=== PATIENT | male | born 1995 | race Caucasian/White ===

== ENCOUNTER 2017-01-12 | Emergency (ER) | payer MEDICAID, OTHER ==
[~2017-01-12] VITALS: Wt 64.2 kg
[~2017-01-12] MED LIST: IBUP800T25 PO
[2017-01-12] MEDS ORDERED: FAMOTIDINE 20 MG INJ IV STA (00:21)
[2017-01-12] MEDS ORDERED: LIDOCAINE/MYLANTA 40 ML BTL PO STA (00:21)
[2017-01-12] MEDS ORDERED: SOD CHLORIDE 0.9% 1,000 ML IV STA (00:21)
[2017-01-12 00:50] LABS: BASOPHILS % 0.3 % (0.0-2.0); EOSINOPHILS # 0.3 10^3/ul (0.0-0.5); EOSINOPHILS % 3.5 % (0.0-7.0); HEMATOCRIT 44.3 % (42.0-52.0); HEMOGLOBIN 15.7 g/dl (14.0-18.0); LYMPHOCYTES # 3.1 10^3/ul (0.8-2.9); LYMPHOCYTES % 32.9 % (15.0-51.0); MEAN CORPUSCULAR HEMOGLOBIN 32.9 pg (29.0-33.0); MEAN CORPUSCULAR HGB CONC 35.4 g/dl (32.0-37.0); MEAN CORPUSCULAR VOLUME 92.9 fl (82.0-101.0); MEAN PLATELET VOLUME 8.8 fl (7.4-10.4); MONOCYTE # 0.6 10^3/ul (0.3-0.9); MONOCYTES % 6.5 % (0.0-11.0); NEUTROPHIL # 5.2 10^3/ul (1.6-7.5); NEUTROPHILS % 56.5 % (39.0-77.0); PLATELET COUNT 288 10^3/UL (140-415); RED BLOOD COUNT 4.77 10^6/ul (4.70-6.10); WHITE BLOOD COUNT 9.3 10^3/ul (4.8-10.8)
[2017-01-12 00:59] LABS: ADD UMIC NO; UR ASCORBIC ACID 20 mg/dL (NEGATIVE); UR BILIRUBIN (Dip) NEGATIVE (NEGATIVE); UR BLOOD (Dip) NEGATIVE (NEGATIVE); UR CLARITY CLEAR (CLEAR); UR COLOR YELLOW (YELLOW); UR GLUCOSE (Dip) NEGATIVE (NEGATIVE); UR KETONES (Dip) NEGATIVE (NEGATIVE); UR LEUKOCYTE ESTERASE (Dip) NEGATIVE Leu/ul (NEGATIVE); UR NITRITE (Dip) NEGATIVE (NEGATIVE); UR SPECIFIC GRAVITY (Dip) 1.021 (1.003-1.030); UR TOTAL PROTEIN (Dip) NEGATIVE (NEGATIVE); UR UROBILINOGEN (Dip) 2+ mg/dL (NEGATIVE)
[2017-01-12 01:09] LABS: ALBUMIN 4.9 g/dl (3.3-4.9); ALBUMIN/GLOBULIN RATIO 1.48; BILIRUBIN,INDIRECT 1.2 mg/dl (0-1.1); BILIRUBIN,TOTAL 1.2 mg/dl (0.2-1.3); CALCIUM 10.1 mg/dl (8.4-10.2); CREATININE 0.9 mg/dl (0.61-1.24); POTASSIUM 3.7 mmol/L (3.5-5.1); TOTAL PROTEIN 8.2 g/dl (6.1-8.1)
--- NOTE | 2017-01-12 01:20 | RADRPT ---
PROCEDURE: US Abdomen (right upper quadrant). CLINICAL INDICATION: Pain. TECHNIQUE: Multiple real-time longitudinal and transverse images of the right upper quadrant of th e abdomen were acquired utilizing a curved array transducer. Images were reviewed on a high-resoluti on PACS workstation. COMPARISON: None FINDINGS: The liver is normal in size and echogencity. There is no focal intrahepatic mass.. The gallbladder is normal. There is no pericholecystic fluid or gallbladder wall thickening or gallstones. No intr a or extrahepatic biliary dilatation is seen. The common bile duct measures 3.6 mm in maximal dimen raad. The visualized portions of the pancreas are unremarkable with obscuration of the tail of the pancreas. No free fluid is identified. Visualized abdominal aorta and IVC are unremarkable. The right kidney measures 10.4 cm in length. Renal cortical echogenicity is within normal limits.. There is no perinephric fluid collection. No hydronephrosis, mass, or calculus is seen. IMPRESSION: 1. Negative examination. RPTAT: HMVK .Bret Duval MD, MD Date Time Electronically viewed and signed by .Bret Duval MD, MD on 01/12/2017 01:20 .K/
--- NOTE | 2017-01-12 01:28 | ERD ---
ER Documentation Chief Complaint Chief Complaint Abdominal pain HPI The patient is a 21-year-old male who presents to the Emergency Department with complaint of abdominal pain for the past 2 days. The patient reports that his pain is localized to the epigastric region of the abdomen, with no radiation. The pain is described as burning in nature (while he eats) and is particularly exacerbated after eating fried, fatty, greasy or spicy foods "with chili." He rates his current pain as 5/10, but notes that he has not yet taken any medication for pain relief. Otherwise, denies any fevers, sweats, chills, nausea , vomiting, diarrhea, dysuria, hematuria, flank pain. Denies black or bloody stools. Denies cough or recent URI symptoms. Denies any other complaints at this time. ROS All systems reviewed and are negative except as per history of present illness. Medications Home Meds Active Scripts Magaldrate/Simethicone* (Mylanta*) 355 Ml Susp, 10 ML PO QID Y for GASTROINTESTINAL UPSET, #1 BOTTLE Prov:KAYLAN CARSON PA-C 01/12/17 Famotidine* (Famotidine*) 20 Mg Tablet, 20 MG PO BID, #30 TAB Prov:KAYLAN CARSON PA-C 01/12/17 Ibuprofen* (Motrin*) 800 Mg Tab, 800 MG PO Q6H Y for PAIN AND OR ELEVATED TEMP, #30 TAB Prov:AUDI AZEVEDO MD 10/01/15 Allergies Allergies: Coded Allergies: No Known Allergy (Unverified , 10/01/15) PMhx/Soc Medical and Surgical Hx: pt denies Medical Hx History of Surgery: Yes (appy) Anesthesia Reaction: No Hx Alcohol Use: No Hx Substance Use: Yes (THC) Hx Tobacco Use: No Smoking Status: Never smoker Physical Exam Vitals Vital Signs Date Time Temp Pulse Resp B/P Pulse Ox O2 Delivery O2 Flow Rate FiO2 01/12/17 01:55 98.8 78 18 137/67 100 Room Air 01/12/17 00:01 99.8 92 20 145/70 100 Physical Exam GENERAL: Well-developed, well-nourished, in no acute distress HEENT: Head is normocephalic, atraumatic. No scleral pallor or icterus. Pupils equal, round and reactive to light. Extraocular movements intact. Conjunctiva pink. Moist mucous membranes. NECK: Supple. RESPIRATORY: Lungs are clear to auscultation bilaterally. Equal breath sounds. Normal expiratory effort. CARDIOVASCULAR: Regular rate and rhythm. S1 and S2 normal. GASTROINTESTINAL: Abdomen is soft and nondistended. Mild tenderness to palpation over the epigastric region of the abdomen. No guarding, no rebound tenderness. Normal bowel sounds. Negative Guzman's sign. No tenderness at McBurney's point. FLANK: No CVA tenderness, no mass or swelling. EXTREMITIES: No clubbing, cyanosis, or edema. Normal skin perfusion. Full range of motion of both the upper and lower extremities bilaterally. Muscle tone is normal. No focal swelling or erythema. NEUROLOGIC: The patient is alert, awake, and oriented x 3. No focal neurologic deficits. INTEGUMENT: Skin is clean, dry and intact. No rashes, lesions or petechiae present. PSYCHIATRIC: Appropriate; Cooperative. Result Diagram: 01/12/172901/12/1729 Results 24 hrs Laboratory Tests Test 01/12/17 00:20 01/12/17 00:30 Urine Color YELLOW Urine Clarity CLEAR Urine pH 6.0 Urine Specific [place] 1.021 Urine Ketones NEGATIVEmg/dL Urine Nitrite NEGATIVEmg/dL Urine Bilirubin NEGATIVEmg/dL Urine Urobilinogen 2+mg/dL Urine Leukocyte Esterase NEGATIVELeu/ul Urine Hemoglobin NEGATIVEmg/dL Urine Glucose NEGATIVEmg/dL Urine Total Protein NEGATIVEmg/dl White Blood Count 9.310^3/ul Red Blood Count 4.7710^6/ul Hemoglobin 15.7g/dl Hematocrit 44.3% Mean Corpuscular Volume 92.9fl Mean Corpuscular Hemoglobin 32.9pg Mean Corpuscular Hemoglobin Concent 35.4g/dl Red Cell Distribution Width 11.0% Platelet Count 54820^3/UL Mean Platelet Volume 8.8fl Neutrophils % 56.5% Lymphocytes % 32.9% Monocytes % 6.5% Eosinophils % 3.5% Basophils % 0.3% Nucleated Red Blood Cells % 0.0/100WBC Neutrophils # 5.210^3/ul Lymphocytes # 3.110^3/ul Monocytes # 0.610^3/ul Eosinophils # 0.310^3/ul Basophils # 0.010^3/ul Nucleated Red Blood Cells # 0.010^3/ul Sodium Level 143mmol/L Potassium Level 3.7mmol/L Chloride Level 103mmol/L Carbon Dioxide Level 28mmol/L Anion Gap 16 Blood Urea Nitrogen 10mg/dl Creatinine 0.90mg/dl Glucose Level 86mg/dl Calcium Level 10.1mg/dl Total Bilirubin 1.2mg/dl Direct Bilirubin 0.00mg/dl Indirect Bilirubin 1.2mg/dl Aspartate Amino Transf (AST/SGOT) 22IU/L Alanine Aminotransferase (ALT/SGPT) 22IU/L Alkaline Phosphatase 60IU/L Total Protein 8.2g/dl Albumin 4.9g/dl Globulin 3.30g/dl Albumin/Globulin Ratio 1.48 Lipase 46U/L Current Medications Medications (Trade) Dose Ordered Sig/Rosa Route PRN Reason Start Time Stop Time Status Last Admin Dose Admin Sodium Chloride (NS) 1,000 ml @ 1,000 mls/hr Q1H STAT IV 01/12/17 00:21 01/12/17 01:20 DC 01/12/17 00:40 Famotidine (Pepcid Iv) 20 mg ONCE STAT IV 01/12/17 00:21 01/12/17 00:22 DC 01/12/17 00:40 Miscellaneous Medication (Gi Cocktail (2)) 40 ml ONCE STAT PO 01/12/17 00:21 01/12/17 00:22 DC 01/12/17 00:40 Procedures/MDM DIAGNOSTIC TESTS AND INTERPRETATION: MEDICAL DECISION MAKING:PROCEDURE: US Abdomen (right upper quadrant). CLINICAL INDICATION: Pain. TECHNIQUE: Multiple real-time longitudinal and transverse images of the right upper quadrant of the abdomen were acquired utilizing a curved array transducer. Images were reviewed on a high-resolution PACS workstation. COMPARISON: None FINDINGS: The liver is normal in size and echogencity. There is no focal intrahepatic mass.. The gallbladder is normal. There is no pericholecystic fluid or gallbladder wall thickening or gallstones. No intra or extrahepatic biliary dilatation is seen. The common bile duct measures 3.6 mm in maximal dimension. The visualized portions of the pancreas are unremarkable with obscuration of the tail of the pancreas. No free fluid is identified. Visualized abdominal aorta and IVC are unremarkable. The right kidney measures 10.4 cm in length. Renal cortical echogenicity is within normal limits.. There is no perinephric fluid collection. No hydronephrosis, mass, or calculus is seen. IMPRESSION: 1. Negative examination. .Bret Duval MD, Date Time Electronically viewed and signed by .Bret Duval MD, MD on 01/12/2017 01:20 MEDICAL DECISION MAKING: This is a 21-year-old male presenting to the Emergency Department with complaint of epigastric abdominal pain for 2 days. His pain is described as burning in nature, and worsening after eating foods that are fried , greasy or spicy. On physical examination, the patient had tenderness to palpation over the epigastrium, but otherwise no guarding, no rebound tenderness , negative Guzman's sign. Differential diagnosis includes, but is not limited to, gastroenteritis, gastritis, cholecystitis, cholangitis, choledocholithiasis , pancreatitis, perforated viscus, mesenteric ischemia, GERD, PUD, urinary tract infection, acute coronary syndrome, pyelonephritis, pneumonia, hepatitis, infectious diarrhea, IBD, aortic dissection, torsion, bowel obstruction, appendicitis, diverticulitis. No significant acute abnormalities were noted on laboratory or imaging modalities ordered. After rest and administration of fluids, Pepcid and GI cocktail, the patient reports no new complaints and much decreased pain and symptoms. Upon review and interpretation of the patient's presentation and overall ER course, I believe the patient's symptoms are most consistent with epigastric abdominal pain, uncertain etiology, but possibly secondary to gastritis. The patient will require further outpatient evaluation to confirm the diagnosis. I doubt cholecystitis, no abnormalities or indication of disease process noted on ultrasound, negative Guzman's sign. Doubt acute coronary syndrome - symptoms and examination inconsistent. Doubt pancreatitis - clinical presentation inconsistent. Doubt perforated ulcer, patient has a non-surgical abdomen. Doubt small bowel obstruction, patient is passing flatus, abdomen is non- distended. Doubt appendicitis, patient has no McBurney's point tenderness, no guarding, non-surgical abdomen, no tenderness over the RLQ. Doubt diverticulitis, exam inconsistent. Doubt ischemic bowel, no pain out of proportion to examination. Doubt torsion, symptoms and examination inconsistent. At this time, the patient is in stable condition and therefore can be discharged home with prescriptions for Mylanta and Pepcid, and strict return precautions for signs of deteriorating or worsening condition. He is advised to follow up with his primary care provider in 2-3 days for reevaluation and further management, or return to the ER sooner if symptoms worsen. I shared my medical decision making, plan, as well as the results with the patient at length and in great detail, and he verbally understands and agrees with the plan for further observation and care as an outpatient. At the time of discharge, all questions were answered. Departure Diagnosis: Primary Impression: Epigastric abdominal pain Condition: Stable Patient Instructions: Epigastric Pain (Uncertain Cause), Gastritis (Adult), Gastritis Vs. Ulcer, Treating Gastritis, Understanding Gastritis Additional Instructions: Llame al doctor MAANA y rainer britany ERICA PARA DENTRO DE 2-3 WHALEY.Dgale a la secretaria que nosotros le instruimos hacer esta erica.Avise o llame si barfield condicin se empeora antes de la erica. Regresa aqui si peor o no mejor. KAYLAN CARSON PA-C Jan 12, 2017 01:28
[2017-01-12] MEDS ORDERED: FAMO20TA18 PO (01:29)
[2017-01-12] MEDS ORDERED: MAG-19 PO (01:29)
[2017-01-12 01:55] VITALS: BP 137/67; PULSE 78; RESP 18; TEMP 98.8
== END 2017-01-12 01:55 | disposition home or self-care (01) ==
LOC: FTE
DX: R10.13 Epigastric pain (principal)
CPT/HCPCS: 76705; 80053; 81003; 83690; 85025; J7030; Z7610; 36415; 96374